=== PATIENT | female | born 1940 | race Caucasian/White ===

== ENCOUNTER → 2017-09-19 | Outpatient (CLI) | payer OTHER ==
[~2017-09-19] VITALS: Ht 154.9 cm; Wt 50.0 kg
[~2017-09-19] MED LIST: AMLODIPINE BESYL5 MG PO; ASPIR-LOW81 MG PO; BENAZEPRIL HCL10 MG PO; CALCIUM 600 +1 EAC1 PO; IBUPROFEN200 M1 PO; LEVOTHYROXINE88 MCG PO; PRESERVISION A1 EAC2 PO; SULFAMETHOXAZO1 EAC4 PO; VITAMIN D31000 UNI2 PO
[2017-09-19 11:01] VITALS: BP 119/64
== END | disposition home or self-care (01) ==
LOC: IVINF 10:48
DX: M81.0 Age-related osteoporosis without current pathological fracture (principal)
CPT/HCPCS: 96365; J3489